=== PATIENT | female | born 1985 | race Caucasian/White ===

== ENCOUNTER 2019-10-04 12:58 | Emergency (ER) | payer OTHER ==
[~2019-10-04] VITALS: Ht 154.9 cm; Wt 96.2 kg
== END 2019-10-04 18:14 | disposition home or self-care (01) ==
LOC: ER 12:58
DX: O26.851 Spotting complicating pregnancy, first trimester (principal); O36.80X1 Pregnancy with inconclusive fetal viability, fetus 1; O23.41 Unspecified infection of urinary tract in pregnancy, first trimester; Z34.01 Encounter for supervision of normal first pregnancy, first trimester

== ENCOUNTER 2019-11-18 09:58 | Emergency (ER) | payer OTHER ==
[~2019-11-18] VITALS: Ht 154.9 cm; Wt 99.8 kg
== END 2019-11-18 18:01 | disposition home or self-care (01) ==
LOC: ER 09:58
DX: O26.892 Other specified pregnancy related conditions, second trimester (principal); R51 Headache; Z03.818 Encounter for observation for suspected exposure to other biological agents ruled out; Z3A.20 20 weeks gestation of pregnancy

== ENCOUNTER 2020-03-15 07:51 | Inpatient (IN) | payer OTHER ==
[~2020-03-15] VITALS: Ht 154.9 cm; Wt 103.0 kg
[2020-03-15] MEDS ORDERED: PRENATAL TABLE1 EAC1 PO (09:18)
== END 2020-03-18 11:58 | disposition home or self-care (01) | DRG 785 ==
LOC: LDR 07:51 → OB/GYN 07:51 → O/R 07:51 → OB/GYN 17:01
PROVIDERS: ADMIT Obstetrics & Gynecology; ATTEND Obstetrics & Gynecology
PROC: 0UB70ZZ Excision of Bilateral Fallopian Tubes, Open Approach (ICD-10-PCS; 2020-03-15)
PROC: 4A1HXFZ Monitoring of Products of Conception, Cardiac Rhythm, External Approach (ICD-10-PCS; 2020-03-15)
PROC: 10D00Z1 Extraction of Products of Conception, Low, Open Approach (ICD-10-PCS; principal; 2020-03-15 13:00)
DX: O34.211 Maternal care for low transverse scar from previous cesarean delivery (principal); N73.6 Female pelvic peritoneal adhesions (postinfective); Z3A.37 37 weeks gestation of pregnancy; Z37.0 Single live birth; Z30.2 Encounter for sterilization; Z20.822 Contact with and (suspected) exposure to COVID-19